=== PATIENT | male | born 1980 | race American Indian/Alaskan Native ===

== ENCOUNTER 2017-12-02 05:05 | Emergency (ER) | payer OTHER ==
[2017-12-02 06:08] LABS: Basophils # (Auto) 0.1 K/mm3 (0.0-0.1); Basophils % (Auto) 0.6 % (0.0-1.8); Eosinophils % (Auto) 0.2 % (0.0-4.3); Hematocrit 40.2 % (35.5-45.6); Hemoglobin 13.6 gm/dl (11.8-15.2); Lymphocytes # (Auto) 1.7 K/mm3 (1.2-5.4); Lymphocytes % (Auto) 19.5 % (13.4-35.0); Mean Corpuscular HGB Conc 34 % (32-34); Mean Corpuscular Hemoglobin 31 pg (28-32); Mean Corpuscular Volume 92 fl (84-94); Monocytes # (Auto) 0.6 K/mm3 (0.0-0.8); Monocytes % (Auto) 6.8 % (0.0-7.3); Platelet Count 289 K/mm3 (140-440); Red Blood Count 4.36 M/mm3 (3.65-5.03); Red Cell Distribution Width 13.6 % (13.2-15.2)
[2017-12-02 06:20] LABS: BUN/Creatinine Ratio 13; Blood Urea Nitrogen 13 mg/dL (9-20); Calcium 9.7 mg/dL (8.4-10.2); Hemolysis Index 11
[2017-12-02 07:04] LABS: Bacteria,Urine 1+ /HPF (Negative); Bilirubin,Urine NEG (Negative); Blood,Urine NEG (Negative); Color,Urine Yellow (Yellow); Mucus,Urine 3+ /HPF
[2017-12-02 07:26] LABS: Benzodiazepines Screen,Urine PRESUMPTIVE NEGATIVE; Methadone Screen,Urine PRESUMPTIVE NEGATIVE; Opiate Screen,Urine PRESUMPTIVE NEGATIVE
--- NOTE | 2017-12-02 07:26 | Emergency Department Report ---
ED Psych HPI - General Chief Complaint: Psych Stated Complaint: OD UNK Time Seen by Provider: 12/02/17 07:21 Source: patient Mode of arrival: Ambulatory - History of Present Illness Initial Comments: Patient is 37-year-old male that presents emergency room with complaints of suicidal ideation and intentional overdose of an unknown heart medication. Patient states he took 14 of 15 pills of an unknown heart medication that was somebody else's. Patient states she's been depressed lately and wants to end it all. Patient states she has a wonderful life but is so depressed that he can 't take it anymore. Patient denies audiovisual hallucination. Patient states at times he does have homicidal ideations. MD Complaint: suicidal ideation, feels depressed -: Sudden Associated Psychiatric Symptoms: depression, suicidal ideation, racing thoughts History of same: Yes Quality: constant Improves With: none Worsens With: none Context: not taking psychiatric Treatments Prior to Arrival: placed on mental he If Self Harm: admits thoughts of, has plan, has acted on plan, intentional overdose - Related Data Allergies Allergy/AdvReac Type Severity Reaction Status Date / Time No Known Allergies Allergy Unverified 12/02/17 05:48 ED Review of Systems ROS: Stated complaint: OD UNK Other details as noted in HPI Comment: All other systems reviewed and negative Constitutional: denies: chills, fever Eyes: denies: eye pain, eye discharge, vision change ENT: denies: ear pain, throat pain Respiratory: denies: cough, shortness of breath, wheezing Cardiovascular: denies: chest pain, palpitations Endocrine: no symptoms reported Gastrointestinal: denies: abdominal pain, nausea, diarrhea Genitourinary: denies: urgency, dysuria Musculoskeletal: denies: back pain, joint swelling, arthralgia Skin: denies: rash, lesions Neurological: denies: headache, weakness, paresthesias Psychiatric: denies: anxiety, depression Hematological/Lymphatic: denies: easy bleeding, easy bruising ED Past Medical Hx - Past Medical History Previous Medical History?: No - Surgical History Past Surgical History?: Yes Additional Surgical History: seperated veins in aarms from SI attemp - Family History Family history: no significant - Social History Smoking Status: Never Smoker ED Physical Exam - General Limitations: No Limitations General appearance: alert, in no apparent distress - Head Head exam: Present: atraumatic, normocephalic - Eye Eye exam: Present: normal appearance - ENT ENT exam: Present: mucous membranes moist - Neck Neck exam: Present: normal inspection - Respiratory Respiratory exam: Present: normal lung sounds bilaterally. Absent: respiratory distress - Cardiovascular Cardiovascular Exam: Present: regular rate, normal rhythm. Absent: systolic murmur, diastolic murmur, rubs, gallop - GI/Abdominal GI/Abdominal exam: Present: soft, normal bowel sounds - Rectal Rectal exam: Present: deferred - Extremities Exam Extremities exam: Present: normal inspection - Back Exam Back exam: Present: normal inspection - Neurological Exam Neurological exam: Present: alert, oriented X3 - Psychiatric Psychiatric exam: Present: depressed, flat affect, suicidal ideation - Skin Skin exam: Present: warm, dry, intact, normal color. Absent: rash ED Course Vital Signs 12/02/17 12/02/17 12/02/17 05:07 08:07 08:16 Temperature 98.7 F 98.0 F Pulse Rate 88 80 86 Respiratory 18 12 15 Rate Blood Pressure 148/102 130/78 Blood Pressure 130/78 [Left] O2 Sat by Pulse 98 99 100 Oximetry 12/02/17 08:17 Temperature Pulse Rate Respiratory 13 Rate Blood Pressure Blood Pressure [Left] O2 Sat by Pulse 100 Oximetry - Reevaluation(s) Reevaluation #1: Patient states he wants to escape and try to run. Will place patient into seclusion room and monitor when necessary 12/02/17 15:31 ED Medical Decision Making - Lab Data Result diagrams: 12/02/17 05:55 12/02/17 05:55 - Medical Decision Making 37-year-old male with suicidal ideation and suicide attempt by pills. 1013 signed. Patient will wait for a mental health and psychiatry evaluation. - Differential Diagnosis depression. Suicidal ideation. Homicidal ideation. Psychosis. OD Critical care attestation.: If time is entered above; I have spent that time in minutes in the direct care of this critically ill patient, excluding procedure time. ED Disposition Clinical Impression: Drug overdose, intentional, Depression, Suicidal ideation, Suicide attempt by drug ingestion, Homicidal ideations, Polysubstance abuse Disposition: DC/TX-65 PSY HOSP/PSY UNIT Is pt being admited?: No Does the pt Need Aspirin: No Condition: Stable Time of Disposition: 15:22
[2017-12-02 07:42] LABS: Amphetamine Screen,Urine PRESUMPTIVE POSITIVE; Cannabinoid Screen,Urine PRESUMPTIVE POSITIVE; Cocaine Screen,Urine PRESUMPTIVE POSITIVE
[2017-12-03 11:22] VITALS: BP 122/80
--- NOTE | 2017-12-03 13:28 | Consultation ---
History of Present Illness - Reason for Consult Consult date: 12/03/17 Reason for consult: Mental Health Evaluation Requesting physician: MARCELA CHAWLA III - Chief Complaint Chief complaint: "I need help" - History of Present Psychiatric Illness 37-year-old male that presents emergency room with complaints of suicidal ideation and intentional overdose of an unknown heart medication. Today the patient is calm and cooperative during the assessment. He stated that he has been "battling" with depression for awhile. He stated that he self medicate with substances so he can have more energy throughout the day. He stated binging on "drugs" for 3 days prior to arriving to the ER. He stated that he feels sad, helpless, and hopeless. He stated that he has attempted suicide in the past. He denies taking multiple pills to kills himself per the ER note. He stated that he mentioned that during triage to get help. He does endorses SI's when asked. He denies HI's and AVH's. He admitted to erratic sleep, but denies a poor appetite. He denies alcohol consumption (etoh). Medications and Allergies Allergies Allergy/AdvReac Type Severity Reaction Status Date / Time No Known Allergies Allergy Unverified 12/02/17 05:48 Past psychiatric history - Past Medical History Past Medical History: No medical history Past Surgical History: No surgical history - past Psychiatric treatment and history Psych: Depression psychiatric treatment history: Outpatient psy services for depression. Denies a fam psy hx. - Social History Social history: lives with family Mental Status Exam - Vital signs Last Vital Signs Temp 98.4 F 12/03/17 11:21 Pulse 67 12/03/17 11:21 Resp 22 12/03/17 11:21 BP 122/80 12/03/17 11:21 Pulse Ox 98 12/03/17 11:21 - Exam Narrative exam: MSE: Appearance: calm, cooperative Behavior: regular eye contact Speech: regular rate and tone Mood: "depressed" Affect: normal Thought Process: circumstantial Thought Content: denies HI's and AVH's Motor Activity: sitting up in bed Cognition: A/O x3 Insight: variable Judgment: variable Results Result Diagrams: 12/02/17 05:55 12/02/17 05:55 All other labs normal. Assessment and Plan Assessment and plan: Impression: MDD, Severe Type. Substance Use DO (amphetamines/cocaine). Cannabis Use DO. Today the patient is calm and cooperative during the assessment. The patient endorses SI's. DDx: R/O Bipolar DO, R/O Substance Induced Mood DO Recommendation/Plan: Continue 1013 with placement to [facility]. Discussed the importance to abstain from recreational drug use with patient. Also, discussed generalized coping skills with patient.
== END 2017-12-03 13:03 ==
LOC: ED 05:05
DX: T50.992A Poisoning by other drugs, medicaments and biological substances, intentional self-harm, initial encounter (principal); F32.9 Major depressive disorder, single episode, unspecified; F19.10 Other psychoactive substance abuse, uncomplicated; Z79.899 Other long term (current) drug therapy; Y92.89 Other specified places as the place of occurrence of the external cause
CPT/HCPCS: 36415; 80048; 80307; 81001; 85025; 93005; 93010; 99285; G0480; 80320

== ENCOUNTER 2018-01-07 13:07 | Emergency (ER) | payer SELFPAY ==
[2018-01-07 15:57] LABS: Basophils # (Auto) 0.1 K/mm3 (0.0-0.1); Basophils % (Auto) 0.9 % (0.0-1.8); Eosinophils # (Auto) 0.1 K/mm3 (0.0-0.4); Eosinophils % (Auto) 1.6 % (0.0-4.3); Hematocrit 41.5 % (35.5-45.6); Hemoglobin 13.6 gm/dl (11.8-15.2); Lymphocytes # (Auto) 2.4 K/mm3 (1.2-5.4); Lymphocytes % (Auto) 31.7 % (13.4-35.0); Mean Corpuscular HGB Conc 33 % (32-34); Mean Corpuscular Hemoglobin 30 pg (28-32); Mean Corpuscular Volume 92 fl (84-94); Monocytes # (Auto) 0.9 K/mm3 (0.0-0.8); Monocytes % (Auto) 12.5 % (0.0-7.3); Platelet Count 226 K/mm3 (140-440); Red Cell Distribution Width 13.3 % (13.2-15.2)
[2018-01-07 16:15] LABS: Alanine Aminotransferase 23 units/L (7-56); Albumin 3.9 g/dL (3.9-5); BUN/Creatinine Ratio 13; Blood Urea Nitrogen 13 mg/dL (9-20); Calcium 8.9 mg/dL (8.4-10.2); Hemolysis Index 8
--- NOTE | 2018-01-07 16:36 | Emergency Department Report ---
ED Psych HPI - General Chief Complaint: Psych Stated Complaint: EVALUATION Time Seen by Provider: 01/07/18 16:15 Source: patient, police Mode of arrival: Ambulatory Limitations: No Limitations - History of Present Illness Initial Comments: She is a 37-year-old male who presents to emergency room with complaints of suicidal ideations and a plan to jump off a bridge. Patient was brought in by police from the [facility] on an existing 1013. Patient states she's been using a lot of cocaine hasn't slept for many days. MD Complaint: suicidal ideation, feels depressed -: Sudden Associated Psychiatric Symptoms: depression, suicidal ideation History of same: Yes Quality: constant Improves With: medication, therapy Worsens With: drug use Context: recent drug abuse, significant life stressor Associated Symptoms: insomnia. denies: confusion, headache, shortness of breath , nausea, vomiting, syncope Treatments Prior to Arrival: placed on mental he If Self Harm: admits thoughts of, has plan - Related Data Allergies Allergy/AdvReac Type Severity Reaction Status Date / Time No Known Allergies Allergy Unverified 12/02/17 05:48 ED Review of Systems ROS: Stated complaint: EVALUATION Other details as noted in HPI Comment: All other systems reviewed and negative Constitutional: denies: chills, fever Eyes: denies: eye pain, eye discharge, vision change ENT: denies: ear pain, throat pain Respiratory: denies: cough, shortness of breath, wheezing Cardiovascular: denies: chest pain, palpitations Endocrine: no symptoms reported Gastrointestinal: denies: abdominal pain, nausea, diarrhea Genitourinary: denies: urgency, dysuria Musculoskeletal: denies: back pain, joint swelling, arthralgia Skin: denies: rash, lesions Neurological: denies: headache, weakness, paresthesias Psychiatric: anxiety, depression, suicidal thoughts Hematological/Lymphatic: denies: easy bleeding, easy bruising ED Past Medical Hx - Past Medical History Previous Medical History?: Yes Hx Psychiatric Treatment: Yes - Surgical History Past Surgical History?: Yes Additional Surgical History: seperated veins in aarms from SI attemp - Family History Family history: no significant - Social History Smoking Status: Current Every Day Smoker Substance Use Type: Cocaine ED Physical Exam - General Limitations: No Limitations General appearance: alert, in no apparent distress - Head Head exam: Present: atraumatic, normocephalic - Eye Eye exam: Present: normal appearance - ENT ENT exam: Present: mucous membranes moist - Neck Neck exam: Present: normal inspection - Respiratory Respiratory exam: Present: normal lung sounds bilaterally. Absent: respiratory distress - Cardiovascular Cardiovascular Exam: Present: regular rate, normal rhythm. Absent: systolic murmur, diastolic murmur, rubs, gallop - GI/Abdominal GI/Abdominal exam: Present: soft, normal bowel sounds - Rectal Rectal exam: Present: deferred - Extremities Exam Extremities exam: Present: normal inspection - Back Exam Back exam: Present: normal inspection - Neurological Exam Neurological exam: Present: alert, oriented X3 - Psychiatric Psychiatric exam: Present: depressed, suicidal ideation - Skin Skin exam: Present: warm, dry, intact, normal color. Absent: rash ED Course Vital Signs 01/07/18 15:15 Temperature 98 F Pulse Rate 86 Respiratory 18 Rate Blood Pressure 113/65 [Left] O2 Sat by Pulse 98 Oximetry - Reevaluation(s) Reevaluation #1: 1013 signed 01/07/18 16:35 Reevaluation #2: Patient medically cleared and awaiting acceptance into psychiatric facility. 01/07/18 20:13 ED Medical Decision Making - Lab Data Result diagrams: 01/07/18 15:37 01/07/18 15:37 Critical care attestation.: If time is entered above; I have spent that time in minutes in the direct care of this critically ill patient, excluding procedure time. ED Disposition Clinical Impression: Suicidal ideation Disposition: DC/TX-65 PSY HOSP/PSY UNIT Is pt being admited?: No Does the pt Need Aspirin: No Condition: Stable Time of Disposition: 20:14
[2018-01-07 19:33] LABS: Bilirubin,Urine NEG (Negative); Blood,Urine SM (Negative); Color,Urine Yellow (Yellow); Mucus,Urine 1+ /HPF; Protein,Urine <15 mg/dL mg/dL (Negative); Urobilinogen,Urine < 2.0 mg/dL (<2.0)
[2018-01-07 19:41] LABS: Amphetamine Screen,Urine PRESUMPTIVE NEGATIVE; Benzodiazepines Screen,Urine PRESUMPTIVE NEGATIVE; Methadone Screen,Urine PRESUMPTIVE NEGATIVE; Opiate Screen,Urine PRESUMPTIVE NEGATIVE
[2018-01-07 20:08] LABS: Cannabinoid Screen,Urine PRESUMPTIVE POSITIVE; Cocaine Screen,Urine PRESUMPTIVE POSITIVE
--- NOTE | 2018-01-08 14:48 | Consultation ---
History of Present Illness - Reason for Consult Consult date: 01/08/18 Reason for consult: Initial Psychiatric Evaluation - Chief Complaint Chief complaint: " I needed a break." - History of Present Psychiatric Illness Patient is a 37 year old male who presents to the emergency room with suicidal ideations. Patient has a PPHx of MDD. Patient presents with suicidal ideations with a plan to jump off a bridge. While at the [facility] , where patient follow-up on a outpatient basis, he verbalized his plan and was sent to the emergency room. Patient prescribed Cymbalta at the [facility] but he reports noncompliance with medication. " I'm not taking any medication. It's not necessary." During the assessment patient refuses to admit to suicidal ideations. He states " I get frustrated at home. I needed a break. When I fall short of taking care of my responsibility at home I begin to fall down." Patient reports good energy, sleep, and appetite. Patient denies SI/HI, A/VH, and delusions. Patient denies mood fluctuations and being easily irritated /agitated. Prior to assessment patient had verbal altercation with information security consultant. Past Psychiatric History: MDD (2018); 2 previous inpatient hospitalizations ( [facility] and [facility]); Outpatient Psychiatrist- [facility]; No previous suicide attempts. Past Psychiatric Medication Trials: Cymbalta- noncompliant with medication. History Trauma/Abuse: Patient denies sexual, physical, and mental abuse. Drug/Alcohol Abuse History: Cocaine- amount/frequency- "periodically," varies; duration-varies; method- " smoke it or snort it"; last use- 01-05-18; first use- 2005 THC- amount and frequency- "periodically," varies; duration-varies; method- "smoke it;" last use- 01-05-18; first use- 2005. Urine drug screen positive for cocaine and marijuana. Social History: Some college; Employment- [employer]; Good support system; In relationship. Not ; 1 daughter- 4 years old; Lives alone. Family History: Patient denies family history of psychiatric or substance abuse. Medications and Allergies Allergies Allergy/AdvReac Type Severity Reaction Status Date / Time No Known Allergies Allergy Verified 01/08/18 20:36 Home Medications Medication Instructions Recorded Confirmed Last Taken Type No Known Home Medications [No 01/09/18 01/09/18 Unknown History Reported Home Medications] Mental Status Exam - Vital signs Last Vital Signs Temp 98.7 F 01/07/18 23:10 Pulse 78 01/07/18 23:10 Resp 16 01/07/18 23:10 BP 149/83 01/07/18 23:10 Pulse Ox 98 01/07/18 23:10 - Exam Narrative exam: Mental Status Exam General Appearance: Causally Dressed-hospital gown Eye Contact: Intermittent Orientation: Alert and oriented x 4 ( person, place, time, and situation) Attitude/Behavior: Evasive, guarded Sensorium: Clear Psychomotor & Musculoskeletal Activity: WNL- Fidgety at times Mood: "Ready to go." Anxious, depressed, and irritable. Affect: Constricted Speech/Language: Normal rate and tone Thought Processes: Circumstantial Thought Content: WNL- None elicited; Paranoia (?) Perception: WNL-patient denies Concentration/Attention: Impaired Suicidal Ideations/Plan: Patient denies Homicidal Ideations/Plan: Patient denies Judgment: Poor Insight: Poor Results Result Diagrams: 01/07/18 15:37 01/07/18 15:37 Abnormal lab results 01/07/18 01/07/18 01/07/18 Range/Units 15:37 15:37 15:37 Mcdonough % (Auto) 12.5 H (0.0-7.3) % Mcdonough # 0.9 H (0.0-0.8) K/mm3 AST 41 H (5-40) units/L Salicylates < 0.3 L (2.8-20.0) mg/dL Acetaminophen (10.0-30.0) ug/mL 01/07/18 Range/Units 15:37 Mcdonough % (Auto) (0.0-7.3) % Mcdonough # (0.0-0.8) K/mm3 AST (5-40) units/L Salicylates (2.8-20.0) mg/dL Acetaminophen < 5.0 L (10.0-30.0) ug/mL All other labs normal. Assessment and Plan Assessment and plan: Impression: Patient is a 37 year old AAM who presents to the emergency room with suicidal ideations with a plan to jump off bridge. PPHx MDD. Today patient presents anxious, fidgety, and irritable. Patient very guarded and evasive. Insight and judgment poor. Although patient denies paranoia, he presents suspicious of others with mood instability. UDS positive for Cocaine and marijuana. DDx: MDD, recurrent, severe with psychotic features r/o Bipolar Disorder Recommendations/ Plan: 1. Continue 1013 and reassess in 24 hours. 2. Assist with placement to inpatient psychiatric services. 3. Start Risperdal 0.5mg po BID mood/psychosis. Cogentin 0.5mg po BID prevention of EPS. 4. Patient educated on metabolic side effects to medications. Patient verbalizes understanding. 5. Patient may refuse medication insight poor. 6. Will monitor mood, psychosis, sleep, appetite, compliance, and side effects.
[2018-01-08] MEDS: RisperDAL PO SCH (22:25)
[2018-01-08] MEDS: COGENTIN PO SCH (22:26)
[2018-01-09] MEDS ORDERED: GEODON IM ONE (10:26)
[2018-01-09] MEDS ORDERED: ATIVAN IM ONE (10:26)
[2018-01-09] MEDS ORDERED: WATER FOR INJ (PF) 10 ML ONE (10:49)
[2018-01-09] MEDS: COGENTIN PO SCH ×2 (14:20→22:15)
[2018-01-09] MEDS: RisperDAL PO SCH ×2 (14:20→22:15)
[2018-01-10] MEDS: RisperDAL PO SCH ×2 (10:52→21:50)
[2018-01-10] MEDS: COGENTIN PO SCH ×2 (10:52→21:50)
--- NOTE | 2018-01-10 13:39 | Progress Note ---
Subjective - Reason for Consult Consult date: 01/10/18 Reason for consult: Psychiatry Follow-up - Chief Complaint Chief complaint: "I am good" 37-year-old male who presents to emergency room with complaints of suicidal ideations and a plan to jump off a bridge. This patient is known to me. Today the patient is calm and cooperative during the assessment. He stated that he relapsed on "drugs" prior to his arrival to the ER. He stated being at [facility] and said something to the staff and he ended up at the ER. He stated that his issue is "drugs." He denies wanting to jump off a bridge per the ER note. He denies SI/HI's and AVH's. He stated that he plan to attend rehab services for substance abuse once discharged. He denies any side effects of his medication. Mental Status Exam - Vital signs Last Vital Signs Temp 98.7 F 01/10/18 10:08 Pulse 91 H 01/10/18 10:08 Resp 18 01/10/18 10:08 BP 117/65 01/10/18 10:08 Pulse Ox 100 01/10/18 10:08 - Exam Narrative exam: MSE: Appearance: calm, cooperative Behavior: regular eye contact Speech: regular rate and tone Mood: "okay" Affect: normal Thought Process: circumstantial Thought Content: denies SI/HI's and AVH's Motor Activity: lying in bed Cognition: A/O x 3 Insight: variable Judgment: variable Assessment and Plan Impression: Unspecified Mood DO. Substance Use DO (cocaine). Cannabis Use DO. Today the patient is calm and cooperative during the assessment. DDx: R/O Bipolar DO, R/O Substance Induced Mood DO Recommendation/Plan: Evaluate 1013 in 24 hours to determine proper dispo. Continue Risperdal 0.5 mg PO BID for mood and Cogentin 0.5 mg PO BID for EPS prevention. Discussed possible metabolic side effects of Risperdal with patient.
--- NOTE | 2018-01-11 13:37 | Progress Note ---
Subjective - Reason for Consult Consult date: 01/11/18 Reason for consult: Psychiatry Follow-up - Chief Complaint Chief complaint: "I learned my lesson" 37-year-old male who presents to emergency room with complaints of suicidal ideations and a plan to jump off a bridge. This patient is known to me. Today the patient is calm and cooperative during the assessment. He stated that he has learned his lesson and will use resources at [facility] for outpatient psy/rehab services. He denies being depressed, SI/HI's, and AVH's. He denies any side effects of his medications. Mental Status Exam - Vital signs Last Vital Signs Temp 98.4 F 01/10/18 22:00 Pulse 69 01/10/18 22:00 Resp 18 01/10/18 22:00 BP 137/79 01/10/18 22:00 Pulse Ox 98 01/10/18 22:00 - Exam Narrative exam: MSE: Appearance: calm, cooperative Behavior: regular eye contact Speech: regular rate and tone Mood: "okay" Affect: normal Thought Process: linear Thought Content: denies SI/HI's and AVH's Motor Activity: lying in bed Cognition: A/O x 3 Insight: appropriate Judgment: appropriate Assessment and Plan Impression: Unspecified Mood DO. Substance Use DO (cocaine). Cannabis Use DO. Today the patient is calm and cooperative during the assessment. The patient is no threat to self. DDx: R/O Bipolar DO, R/O Substance Induced Mood DO Recommendation/Plan: Rescind 1013. Continue Risperdal 0.5 mg PO BID for mood and Cogentin 0.5 mg PO BID for EPS prevention. Discussed possible metabolic side effects of Risperdal with patient. Discussed the importance to abstain from recreational drugs. The patient can follow up with [facility] for outpatient psy/rehab services.
--- NOTE | 2018-01-11 15:07 | Emergency Department Report ---
Blank Doc - Documentation Documentation: I was evaluating the patient. He was admitted to the hospital on January 07 due to suicidal ideation and cocaine intoxication. I reviewed the clinical documentation and the mental health recommendation at this time that the patient be discharged. He is not actively suicidal or homicidal. He is clinically sober. I feel very safe to go home. He has been given resources for drug rehabilitation programs. Patient is clear for discharge.
[2018-01-11 15:18] VITALS: BP 130/96
== END 2018-01-11 15:47 | disposition home or self-care (01) ==
LOC: ED 13:07 → EEVIPCON 13:07 → ED 01-11 15:47
DX: F32.9 Major depressive disorder, single episode, unspecified (principal); F39 Unspecified mood [affective] disorder; R45.851 Suicidal ideations; F17.200 Nicotine dependence, unspecified, uncomplicated; F14.10 Cocaine abuse, uncomplicated
CPT/HCPCS: 36415; 80053; 80307; 81001; 85025; 99285; G0480; J2060; J3486; 80320

== ENCOUNTER 2021-02-13 14:21 | Emergency (ER) | payer SELFPAY ==
--- NOTE | 2021-02-13 14:55 | Event Note ---
ED Screening Note ED Screening Note: here for med clearance for detox from heroin and cocaine a/v barrett- pos paranoid- pos no si/hi has been to dextox before last used 2 days ago cooperative pt coughing in triage- pt requesting cough med denies physical complaint on triage exam HR 110 This initial assessment/diagnostic orders/clinical plan/treatment(s) is/are subject to change based on patients health status, clinical progression and re- assessment by fellow clinical providers in the ED. Further treatment and workup at subsequent clinical providers discretion. Patient/guardian urged not to elope from the ED as their condition may be serious if not clinically assessed and managed. Initial orders include: labs ua xr due to coughing in triage medical clearance
[2021-02-13] MEDS ORDERED: guaiFENesin 200 MG TAB PO ONE (15:30)
[2021-02-13 15:49] LABS: Alanine Aminotransferase 17 units/L (7-56); Albumin 3.7 g/dL (3.9-5); BUN/Creatinine Ratio 10; Blood Urea Nitrogen 10 mg/dL (9-20); Calcium 9.4 mg/dL (8.4-10.2); Hemolysis Index 10
[2021-02-13 16:00] LABS: Basophils # (Auto) 0.2 K/mm3 (0.0-0.1); Basophils % (Auto) 1.5 % (0.0-1.8); Eosinophils # (Auto) 1.3 K/mm3 (0.0-0.4); Eosinophils % (Auto) 11.6 % (0.0-4.3); Hematocrit 40.6 % (35.5-45.6); Hemoglobin 13.8 gm/dl (11.8-15.2); Lymphocytes # (Auto) 2.1 K/mm3 (1.2-5.4); Lymphocytes % (Auto) 19.5 % (13.4-35.0); Mean Corpuscular HGB Conc 34 % (32-34); Mean Corpuscular Volume 93 fl (84-94); Monocytes % (Auto) 9.6 % (0.0-7.3); Platelet Count 406 K/mm3 (140-440); Red Blood Count 4.35 M/mm3 (3.65-5.03); Red Cell Distribution Width 12.3 % (13.2-15.2)
--- NOTE | 2021-02-13 16:06 | XRay Report ---
XR chest routine 2V INDICATION / CLINICAL INFORMATION: cough COMPARISON: None available. FINDINGS: SUPPORT DEVICES: None. HEART / MEDIASTINUM: No significant abnormality. LUNGS / PLEURA: Lungs are clear. Costophrenic sulci are sharp. No pneumothorax. ADDITIONAL FINDINGS: No significant additional findings. IMPRESSION: 1. No acute findings. Signer Name: Terrence Villarreal MD Signed: 02/13/2021 4:02 PM Workstation Name: [id number]
[2021-02-13 16:21] LABS: Bacteria,Urine 1+ /HPF (Negative); Bilirubin,Urine NEG (Negative); Blood,Urine NEG (Negative); Color,Urine Yellow (Yellow); Mucus,Urine FEW /HPF; Protein,Urine <15 mg/dL mg/dL (Negative)
[2021-02-13 16:23] LABS: Benzodiazepines Screen,Urine Negative; Methadone Screen,Urine Negative; Opiate Screen,Urine Negative
[2021-02-13 16:37] LABS: Amphetamine Screen,Urine Positive; Cannabinoid Screen,Urine Positive; Cocaine Screen,Urine Positive
[2021-02-13] MEDS ORDERED: LIDOCAINE-MPF (1%) 10 MG/1 ML VIAL 5 ML INFILTRATI ONE (16:48)
[2021-02-13] MEDS ORDERED: PROMETHAZINE 25 MG TAB PO ONE (16:48)
[2021-02-13] MEDS ORDERED: AZITHROMYCIN 250 MG TAB PO ONE (16:48)
[2021-02-13 16:50] VITALS: BP 147/98
--- NOTE | 2021-02-13 17:08 | Emergency Department Report ---
ED General Adult HPI - General Chief complaint: Medical Clearance Stated complaint: MED CLEARANCE Time Seen by Provider: 02/13/21 14:54 Source: patient Mode of arrival: Ambulatory Limitations: No Limitations - History of Present Illness Initial comments: 40-year-old -[place] male patient presents to the ED for medical clearance for admission to [facility]. 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 He denies any SI/HI. Admits to previous psychiatric admissions. He is a daily smoker. Patient denies any c omplaints at this time including chest pain, shortness of breath, dizziness, or headache. Severity scale (0 -10): 9 - Related Data Home Medications Medication Instructions Recorded Confirmed Last Taken No Known Home Medications [No 01/09/18 01/09/18 Unknown Reported Home Medications] Allergies Allergy/AdvReac Type Severity Reaction Status Date / Time No Known Allergies Allergy Verified 01/08/18 20:36 ED Review of Systems ROS: Stated complaint: MED CLEARANCE Other details as noted in HPI Constitutional: denies: chills, fever, malaise Respiratory: denies: cough, shortness of breath Cardiovascular: denies: chest pain Gastrointestinal: denies: abdominal pain Skin: denies: lesions Neurological: denies: headache ED Past Medical Hx - Past Medical History Previous Medical History?: Yes Hx Psychiatric Treatment: Yes - Surgical History Past Surgical History?: Yes Additional Surgical History: seperated veins in aarms from SI attemp - Social History Smoking Status: Current Every Day Smoker Substance Use Type: Cocaine, Heroin - Medications Home Medications: Home Medications Medication Instructions Recorded Confirmed Last Taken Type No Known Home Medications [No 01/09/18 01/09/18 Unknown History Reported Home Medications] ED Physical Exam - General Limitations: No Limitations General appearance: alert, in no apparent distress - Head Head exam: Present: atraumatic, normocephalic - Eye Eye exam: Present: normal appearance. Absent: scleral icterus - Neck Neck exam: Present: normal inspection - Respiratory Respiratory exam: Present: normal lung sounds bilaterally. Absent: respiratory distress - Cardiovascular Cardiovascular Exam: Present: regular rate, normal rhythm. Absent: systolic murmur, diastolic murmur, rubs, gallop - GI/Abdominal GI/Abdominal exam: Present: soft, normal bowel sounds. Absent: distended, tenderness, guarding, rebound, rigid - Extremities Exam Extremities exam: Present: full ROM - Back Exam Back exam: Present: full ROM. Absent: CVA tenderness (R), CVA tenderness (L) - Neurological Exam Neurological exam: Present: alert, oriented X3 - Psychiatric Psychiatric exam: Present: normal affect, normal mood - Skin Skin exam: Present: warm, dry, intact, normal color. Absent: rash ED Course Vital Signs 02/13/21 02/13/21 02/13/21 14:52 16:22 16:49 Temperature 98.7 F Pulse Rate 110 H 99 H Respiratory 20 20 16 Rate Blood Pressure 137/103 Blood Pressure 147/98 [Left] O2 Sat by Pulse 99 100 Oximetry ED Medical Decision Making - Lab Data Result diagrams: 02/13/21 15:05 02/13/21 15:05 Lab Results 02/13/21 02/13/21 02/13/21 Range/Units 15:05 15:05 15:05 WBC 10.8 (4.5-11.0) K/mm3 RBC 4.35 (3.65-5.03) M/mm3 Hgb 13.8 (11.8-15.2) gm/dl Hct 40.6 (35.5-45.6) % MCV 93 (84-94) fl MCH 32 (28-32) pg MCHC 34 (32-34) % RDW 12.3 L (13.2-15.2) % Plt Count 406 (140-440) K/mm3 Lymph % (Auto) 19.5 (13.4-35.0) % Morehouse % (Auto) 9.6 H (0.0-7.3) % Eos % (Auto) 11.6 H (0.0-4.3) % Baso % (Auto) 1.5 (0.0-1.8) % Lymph # (Auto) 2.1 (1.2-5.4) K/mm3 Morehouse # (Auto) 1.0 H (0.0-0.8) K/mm3 Eos # (Auto) 1.3 H (0.0-0.4) K/mm3 Baso # (Auto) 0.2 H (0.0-0.1) K/mm3 Seg Neutrophils % 57.8 (40.0-70.0) % Seg Neutrophils # 6.3 (1.8-7.7) K/mm3 Sodium 138 (137-145) mmol/L Potassium 4.3 (3.6-5.0) mmol/L Chloride 100.9 (98-107) mmol/L Carbon Dioxide 31 H (22-30) mmol/L Anion Gap 10 mmol/L BUN 10 (9-20) mg/dL Creatinine 1.0 (0.8-1.3) mg/dL Estimated GFR > 60 ml/min BUN/Creatinine Ratio 10 % Glucose 94 (75-100) mg/dL Calcium 9.4 (8.4-10.2) mg/dL Total Bilirubin 0.40 (0.1-1.2) mg/dL AST 15 (5-40) units/L ALT 17 (7-56) units/L Alkaline Phosphatase 90 (35-129) units/L Total Protein 7.7 (6.3-8.2) g/dL Albumin 3.7 L (3.9-5) g/dL Albumin/Globulin Ratio 0.9 % TSH 0.269 L (0.270-4.200) mlU/mL Urine Color (Yellow) Urine Turbidity (Clear) Urine pH (5.0-7.0) Ur Specific Gans (1.003-1.030) Urine Protein (Negative) mg/dL Urine Glucose (UA) (Negative) mg/dL Urine Ketones (Negative) mg/dL Urine Blood (Negative) Urine Nitrite (Negative) Urine Bilirubin (Negative) Urine Urobilinogen (<2.0) mg/dL Ur Leukocyte Esterase (Negative) Urine WBC (Auto) (0.0-6.0) /HPF Urine RBC (Auto) (0.0-6.0) /HPF U Epithel Cells (Auto) (0-13.0) /HPF Urine Bacteria (Auto) (Negative) /HPF Urine Mucus /HPF Salicylates (2.8-20.0) mg/dL Urine Opiates Screen Urine Methadone Screen Acetaminophen (10.0-30.0) ug/mL Ur Barbiturates Screen Ur Phencyclidine Scrn Ur Amphetamines Screen U Benzodiazepines Scrn Urine Cocaine Screen U Marijuana (THC) Screen Drugs of Abuse Note Plasma/Serum Alcohol (0-0.07) % 02/13/21 02/13/21 02/13/21 Range/Units 15:05 15:05 15:05 WBC (4.5-11.0) K/mm3 RBC (3.65-5.03) M/mm3 Hgb (11.8-15.2) gm/dl Hct (35.5-45.6) % MCV (84-94) fl MCH (28-32) pg MCHC (32-34) % RDW (13.2-15.2) % Plt Count (140-440) K/mm3 Lymph % (Auto) (13.4-35.0) % Morehouse % (Auto) (0.0-7.3) % Eos % (Auto) (0.0-4.3) % Baso % (Auto) (0.0-1.8) % Lymph # (Auto) (1.2-5.4) K/mm3 Morehouse # (Auto) (0.0-0.8) K/mm3 Eos # (Auto) (0.0-0.4) K/mm3 Baso # (Auto) (0.0-0.1) K/mm3 Seg Neutrophils % (40.0-70.0) % Seg Neutrophils # (1.8-7.7) K/mm3 Sodium (137-145) mmol/L Potassium (3.6-5.0) mmol/L Chloride (98-107) mmol/L Carbon Dioxide (22-30) mmol/L Anion Gap mmol/L BUN (9-20) mg/dL Creatinine (0.8-1.3) mg/dL Estimated GFR ml/min BUN/Creatinine Ratio % Glucose (75-100) mg/dL Calcium (8.4-10.2) mg/dL Total Bilirubin (0.1-1.2) mg/dL AST (5-40) units/L ALT (7-56) units/L Alkaline Phosphatase (35-129) units/L Total Protein (6.3-8.2) g/dL Albumin (3.9-5) g/dL Albumin/Globulin Ratio % TSH (0.270-4.200) mlU/mL Urine Color (Yellow) Urine Turbidity (Clear) Urine pH (5.0-7.0) Ur Specific Gans (1.003-1.030) Urine Protein (Negative) mg/dL Urine Glucose (UA) (Negative) mg/dL Urine Ketones (Negative) mg/dL Urine Blood (Negative) Urine Nitrite (Negative) Urine Bilirubin (Negative) Urine Urobilinogen (<2.0) mg/dL Ur Leukocyte Esterase (Negative) Urine WBC (Auto) (0.0-6.0) /HPF Urine RBC (Auto) (0.0-6.0) /HPF U Epithel Cells (Auto) (0-13.0) /HPF Urine Bacteria (Auto) (Negative) /HPF Urine Mucus /HPF Salicylates < 0.3 L (2.8-20.0) mg/dL Urine Opiates Screen Urine Methadone Screen Acetaminophen 5.0 L (10.0-30.0) ug/mL Ur Barbiturates Screen Ur Phencyclidine Scrn Ur Amphetamines Screen U Benzodiazepines Scrn Urine Cocaine Screen U Marijuana (THC) Screen Drugs of Abuse Note Plasma/Serum Alcohol < 0.01 (0-0.07) % 02/13/21 02/13/21 Range/Units 15:46 15:46 WBC (4.5-11.0) K/mm3 RBC (3.65-5.03) M/mm3 Hgb (11.8-15.2) gm/dl Hct (35.5-45.6) % MCV (84-94) fl MCH (28-32) pg MCHC (32-34) % RDW (13.2-15.2) % Plt Count (140-440) K/mm3 Lymph % (Auto) (13.4-35.0) % Morehouse % (Auto) (0.0-7.3) % Eos % (Auto) (0.0-4.3) % Baso % (Auto) (0.0-1.8) % Lymph # (Auto) (1.2-5.4) K/mm3 Morehouse # (Auto) (0.0-0.8) K/mm3 Eos # (Auto) (0.0-0.4) K/mm3 Baso # (Auto) (0.0-0.1) K/mm3 Seg Neutrophils % (40.0-70.0) % Seg Neutrophils # (1.8-7.7) K/mm3 Sodium (137-145) mmol/L Potassium (3.6-5.0) mmol/L Chloride (98-107) mmol/L Carbon Dioxide (22-30) mmol/L Anion Gap mmol/L BUN (9-20) mg/dL Creatinine (0.8-1.3) mg/dL Estimated GFR ml/min BUN/Creatinine Ratio % Glucose (75-100) mg/dL Calcium (8.4-10.2) mg/dL Total Bilirubin (0.1-1.2) mg/dL AST (5-40) units/L ALT (7-56) units/L Alkaline Phosphatase (35-129) units/L Total Protein (6.3-8.2) g/dL Albumin (3.9-5) g/dL Albumin/Globulin Ratio % TSH (0.270-4.200) mlU/mL Urine Color Yellow (Yellow) Urine Turbidity Clear (Clear) Urine pH 7.0 (5.0-7.0) Ur Specific Gans 1.023 (1.003-1.030) Urine Protein <15 mg/dl (Negative) mg/dL Urine Glucose (UA) Neg (Negative) mg/dL Urine Ketones Neg (Negative) mg/dL Urine Blood Neg (Negative) Urine Nitrite Neg (Negative) Urine Bilirubin Neg (Negative) Urine Urobilinogen 4.0 (<2.0) mg/dL Ur Leukocyte Esterase Sm (Negative) Urine WBC (Auto) 13.0 H (0.0-6.0) /HPF Urine RBC (Auto) 8.0 (0.0-6.0) /HPF U Epithel Cells (Auto) 1.0 (0-13.0) /HPF Urine Bacteria (Auto) 1+ (Negative) /HPF Urine Mucus Few /HPF Salicylates (2.8-20.0) mg/dL Urine Opiates Screen Negative Urine Methadone Screen Negative Acetaminophen (10.0-30.0) ug/mL Ur Barbiturates Screen Negative Ur Phencyclidine Scrn Negative Ur Amphetamines Screen Positive U Benzodiazepines Scrn Negative Urine Cocaine Screen Positive U Marijuana (THC) Screen Positive Drugs of Abuse Note Disclamer Plasma/Serum Alcohol (0-0.07) % - Medical Decision Making Drug screen is positive for cocaine, marijuana, and amphetamines. UA shows elevated WBCs. Upon further questioning, patient admits to some dysuria with penile discharge. No penile lesions/pain/swelling or testicular pain/swelling per patient. Will treat empirically for gonorrhea chlamydia with Rocephin and azithromycin. Patient informed to follow-up on his results of gonorrhea and chlamydia in 5 days here at the hospital. Urine culture sent. His vitals are within normal limits, he is nontoxic-appearing, he is stable for discharge home. Patient is medically clear for psychiatric admission Critical care attestation.: If time is entered above; I have spent that time in minutes in the direct care of this critically ill patient, excluding procedure time. ED Disposition Clinical Impression: Medical clearance for psychiatric admission, Pyuria Disposition: TO HOME OR SELFCARE Is pt being admited?: No Condition: Stable Instructions: Gonorrhea, Chlamydia, Male Additional Instructions: You are medically cleared for admission to a psychiatric Referrals: PRIMARY CARE, [Primary Care Provider] - 3-5 Days
== END 2021-02-13 17:54 | disposition home or self-care (01) ==
LOC: ED 14:21
DX: R82.81 Pyuria (principal); F17.200 Nicotine dependence, unspecified, uncomplicated; F14.90 Cocaine use, unspecified, uncomplicated; Z00.8 Encounter for other general examination
CPT/HCPCS: 36415; 71046; 80053; 80307; 81001; 84443; 85025; 87086; 96372; 99284; J0696; Q0169; 80320; G0480